=== PATIENT | female | born 1925 | race Caucasian/White ===

== ENCOUNTER 2017-02-24 13:13 | Inpatient (IN) | payer MEDICARE ==
[2017-02-24 14:01] LABS: #Monocytes 0.8 thou/uL (0.11-0.59); #Neutrophils 12.4 thou/uL (1.40-6.50); %Basophils 0.2 % (0.0-1.0); %Eosinophils 0.2 % (0.0-10.0); %Monocytes 5.6 % (0.0-10.0); Hematocrit 37.5 % (36.0-47.0); Mean Platelet Volume 6.7 fL (7.4-10.4); Red Blood Cell (RBC) Count 3.83 mill/uL (4.20-5.40); White Blood Cell (WBC) Count 14.2 thou/uL (4.8-10.8)
[2017-02-24 14:12] LABS: PTT 23.4 SEC (22.9-36.1); Prothrombin Time 15.8 SEC (12.0-14.7)
[2017-02-24 14:22] LABS: Lactic Acid - Sepsis 3.5 mmol/L (0.5-2.2)
[2017-02-24 14:25] LABS: ALT (SGPT) 28 U/L (8-55); AST (SGOT) 80 U/L (5-34); Alkaline Phosphatase 100 U/L (40-150); Anion Gap 20 mmol/L (10-20); BUN (Urea Nitrogen) 24 mg/dL (9.8-20.1); Bilirubin, Total 1.1 mg/dL (0.2-1.2); CK (CPK) 2856 U/L (29-168); Calc. Creatinine Clearance 0 mL/min (70-130); Calcium 9.1 mg/dL (7.8-10.44); Carbon Dioxide 19 mmol/L (23-31); Chloride 97 mmol/L (98-107); Estimated GFR-MDRD 65; Globulin 3.3 g/dL (2.4-3.5); Protein, Total 6.8 g/dL (6.0-8.3)
[2017-02-24 14:29] LABS: Troponin I 0.239 ng/mL (< 0.028)
--- NOTE | 2017-02-24 14:54 | CT ---
FACIAL BONES CT WITHOUT CONTRAST: Date: 02/24/17 HISTORY: Status post fall last night, unwitnessed. Unknown down time. Post-traumatic pain and lacerations. COMPARISON: None. TECHNIQUE: Maxillofacial CT is performed in the axial plane. Reformatted images are submitted for interpretatio n. FINDINGS: Visualized calvarium is intact. Adequate aeration of the visualized sinuses and mastoid air cells. Bilateral zygomatic arches are intact. Mandible and maxilla do not demonstrate post-traumatic change . Pterygoid plates are intact. There is preservation of the osseous margins of the orbits, as well as the paranasal sinuses. Bilateral ostiomeatal complexes are patent. Nasal septum is intact. Bilateral ocular lens implants are noted. Both globes are intact. Retrobulbar fat is preserved. Symm etric attenuation of the optic nerves and ocular rectus muscles. Limited evaluation of the oral cavity due to dental amalgam artifact. Midline fatty raphe of the ton lele is preserved. Upper cervical spine demonstrates preservation of vertebral body height. Nondisplaced right nasal bone fracture is noted. IMPRESSION: 1. Midline frontal scalp post-traumatic change. 2. Right nasal bone fracture. POS: [facility]
--- NOTE | 2017-02-24 14:55 | CT ---
CT HEAD WITHOUT IV CONTRAST: Date: 02-24-17 History: Patient fell. Unknown downtime. Found this morning with laceration to forehead and bruising to bilateral eyes. Comparison: None available. FINDINGS: There is decreased attenuation of the periventricular and white matter likely reflective of moderate to severe chronic small vessel ischemic changes. There is no evidence of acute cortical infarction, hemorrhage, mass effect or midline shift. There is mild cerebral volume loss. Ventricular system is normal in size, shape, and position for the degree of sulcal atrophy. There is soft tissue defect in the anterior and frontal region with associated subcutaneous soft tis suad swelling likely related to laceration. Underlying calvarial structures are intact, there is no e vidence of a calvarial fracture. No radiopaque foreign body is identified. IMPRESSION: 1. No acute intracranial abnormality is demonstrated. 2. Chronic small vessel ischemic changes with volume loss. 3. Scalp laceration anterior frontal region. POS: [facility]
--- NOTE | 2017-02-24 15:01 | CT ---
CERVICAL SPINE CT WITHOUT CONTRAST: Date: 02/24/17 HISTORY: Patient fell, down uncertain time. Laceration. Post-traumatic pain. COMPARISON: None. TECHNIQUE: A cervical spine CT is performed without contrast. Reformatted images are submitted for interpretati on. FINDINGS: Lateral masses of C1 and C2 articulate appropriately. There is appropriate articulation of the facet s. Odontoid process is intact. No prevertebral soft tissue swelling. No epidural hematoma. No high grade central canal stenosis. Mo derate bilateral foraminal narrowing at C5-C6 is noted. Evaluation of the contents of the central sp inal canal and neural foramina are limited by technique. Upper mediastinum and lung apices are unremarkable. There is approximately 1-2 mm of anterolisthesis of C4 upon C5, likely on the basis of degenerative change. Current study is not tailored to assess for ligamentous injury. Cervical spine vertebral bod y height is maintained. No fracture. IMPRESSION: No fracture. POS: [facility]
--- NOTE | 2017-02-24 15:42 | CT ---
EXAM: CHEST CT WITH CONTRAST ABDOMEN CT WITH CONTRAST PELVIC CT WITH CONTRAST LIMITED CT OF THE THORACIC AND LUMBAR SPINE 02/24/17 HISTORY: Patient was found down. Patient fell. Unwitnessed down time. COMPARISON: None. TECHNIQUE: Chest, abdomen and pelvic CT are performed with IV contrast. Coronal reformatted images are submitte d for interpretation. Limited CT of the thoracic and lumbar spine is performed with reformatted imag es. FINDINGS: CHEST CT: No mediastinal mass, lymphadenopathy or hematoma. Heart size is within normal limits. No significant pericardial fluid. The thoracic aorta and abdominal aorta do demonstrate mild tortuosity. No aneury sm or dissection. Atherosclerosis noted. Trachea and central bronchi are patent. Chronic change in the lung parenchyma are suspected. There i s an ill-defined 6 mm nodule in the middle lobe. Atelectatic changes are identified in the lung base s. ABDOMEN AND PELVIC CT: Intra and extrahepatic portal vein is patent. Liver, spleen, and adrenal glands have appropriate enhancement. Gallbladder is unremarkable. Symmetric enhancement of the kidneys. Bilaterally, no obstructive uropathy. There is a hypodensity in the uncinate process of the pancreas, incompletely evaluated measuring sumanth roximately 1.6 cm. Evaluation is limited by motion. No gastrohepatic, retrocrural or periportal lymphadenopathy. No mesenteric mass, lymphadenopathy, free air or free fluid. Limited evaluation of the alimentary canal due to lack of oral contrast. No evidence of bowel obstru ction. Ileocecal junction is normal. Fecal material in a nondistended, nondilated colon. Mucosal thi ckening of the sigmoid colon likely due to remote bouts of diverticulitis. Active inflammation is no t appreciated. Nonemergent colonoscopy if clinically warranted. PELVIC CT: There is evidence of pessary. No pelvic mass, lymphadenopathy, free air or free fluid. Urinary bladd er is unremarkable. Uterus and adnexal structures are unremarkable. Irregularity involving the proximal right humerus. Correlate for an acute versus chronic fracture. T he bony thorax is unremarkable. The left superior pubic ramus demonstrates fracture. Fracture along the anterior aspect of the left inferior pubic ramus is also noted. Additional fractures are not sumanth reciated. CT OF THE THORACIC AND LUMBAR SPINE: Scoliotic curvature of the thoracic and lumbar spine. No acute fracture. Degenerative changes are no yunior. IMPRESSION: 1. Probable remote trauma to the proximal right humerus. Confirmation with clinical correlation is recommended. Dedicated shoulder right shoulder radiograph views required. 2. Nonspecific 6 mm nodule in the middle lobe. 3. Left inferior and superior pubic rami fractures. 4. Hypodensity in the pancreas incompletely evaluated. POS: [facility]
[2017-02-24] MEDS ORDERED: Lidocaine 1% w/Epinephrine 1:200K 30 ML VIAL ONE (15:43)
[2017-02-24] MEDS ORDERED: ISOVUE-370 76%-LOCM 1 ML ONE (15:53)
[2017-02-24] MEDS ORDERED: Piperacillin/Tazobactam 4.5 GM VIAL ONE (15:58)
[2017-02-24] MEDS ORDERED: Dextrose 5% in Water 1,000 ML IV PRN ×2 (16:13→16:14)
[2017-02-24] MEDS ORDERED: Dextrose 50% Abboject 50 ML SYRINGE SLOW IVP PRN ×2 (16:13→16:14)
[2017-02-24] MEDS ORDERED: Ondansetron HCl/PF 4 MG/2 ML Vial IVP PRN (16:14)
[2017-02-24] MEDS ORDERED: Ondansetron ODT 4 MG TAB PO PRN (16:14)
[2017-02-24] MEDS ORDERED: Vancomycin HCl 1 GM in Premix Bag 1 BAG IVPB SCH (16:15)
[2017-02-24] MEDS ORDERED: Piperacillin/Tazobactam 4.5 GM, Admixture Fee 1 EACH in Sodium Chloride 0.9% 100 ML IVPB SCH (16:15)
[2017-02-24] MEDS ORDERED: Rib Fracture Protocol PO SCH (16:15)
[2017-02-24] MEDS ORDERED: Adacel (T-DAP) 0.5 ML VIAL ONE (16:39)
[2017-02-24] MEDS ORDERED: Sodium Chloride 0.9% 1,000 ML IV SCH ×2 (17:00→17:16)
[2017-02-24] MEDS ORDERED: Cyclobenzaprine 10 MG TAB PO PRN (17:00)
[2017-02-24 17:18] LABS: Bilirubin Negative (Negative); Blood, Urine Large (Negative); Glucose, Urine (Dipstick) Negative (Negative); Ketone, Urine 15 mg/dL (Negative); Nitrite Negative (Negative); Protein, Urine (Dipstick) Trace mg/dL (Neg-Trace); Urobilinogen 0.2 mg/dL (0.2-1.0)
[2017-02-24 17:20] LABS: Bacteria/HPF None Seen HPF (None Seen); Hyaline Casts/LPF 0-3 HYALINE CAST LPF (0-3 Hyaline); Squamous Epithelial 0-3 HPF (0-3); WBC/HPF 0-3 HPF (0-3)
[2017-02-24 18:00] LABS: Troponin I 0.242 ng/mL (< 0.028)
[2017-02-24 18:04] LABS: Critical Call CKMBM RESULT DECREASING
--- NOTE | 2017-02-24 18:49 | HP ---
DATE OF ADMISSION: 02/24/2017 ATTENDING PHYSICIAN: Jamey Childers D.O. TRAUMA ACTIVATION: Not applicable. HISTORY OF PRESENT ILLNESS: Ms. Lori Piper is an 89-year-old female who presented to [facility], status post unwitnessed fall. Patient is amnestic of events surrounding the fall. Per family a t bedside, she was found on the floor this a.m. She was evaluated in the emergency room and found t o have a nondisplaced right nasal bone fracture, superior and inferior pubic rami fracture as well a s multiple lab abnormalities. Orthopedic Surgery was notified and Trauma Services was asked to admi t. Upon my evaluation, the patient has a chief complaint of left upper extremity discomfort with mo vement, but then later states she has no complaints of her pain at this time. She has difficulty re membering the events surrounding her fall. She is alert and oriented x2 self and time. PAST MEDICAL HISTORY AND ALLERGIES: The patient denies. CHRONIC MEDICAL ILLNESS: Atrial fibrillation, hypertension, chronic back pain. HOME MEDICATIONS: Metoprolol, dose unknown; ibuprofen; ASA 81 mg; lorazepam, dose unknown p.r.n. PAST SURGICAL HISTORY: Significant for hysterectomy. SOCIAL HISTORY: Patient lives at home alone, ambulates independently. Denies alcohol, illicit drug use, or tobacco use. FAMILY HISTORY: Noncontributory in this case. REVIEW OF SYSTEMS: Negative except as indicated in the HPI. Specifically, the patient denies fever s, chills, nausea, vomiting, abdominal pain, urinary retention, dysuria, frequency or urgency, chest pain, shortness of breath, cough or increasing sputum production. PHYSICAL EXAMINATION: VITAL SIGNS: Blood pressure 168/65, pulse 105, respirations 20, O2 sat 92% on 3 liters. GENERAL: Well-developed elderly appearing female resting in bed, in no acute distress. HEAD: There is a small 1.5 cm laceration on the mid forehead with active venous bleeding. There is an additional small 1-1.5 cm laceration inferior to that with dried blood. There is bilateral yaw orbital left greater than right ecchymosis. There is dried blood in her hair. EYES: Pupils were PERRL. Extraocular movements are intact. NECK: Supple. Trachea is midline. Range of motion within normal limits for patient. CHEST/PULMONARY: Pectus excavatum noted. Normal work of breathing, symmetric rise. No tenderness to palpation. LUNGS: Clear to auscultation bilaterally. CARDIOVASCULAR: Regular rate and rhythm, no obvious murmurs, rubs, or gallops. GASTROINTESTINAL: Abdomen is soft with mild suprapubic tenderness to palpation only. Bowel sounds are positive. MUSCULOSKELETAL: Moves all extremities x4. There is 2-3+ pitting edema to the level of the mid yomi n in bilateral lower extremities. NEUROLOGIC: Patient is alert and oriented to self and time. No focal deficit noted. LABORATORY FINDINGS: Sodium 133, potassium 3.2, chloride 97, carbon dioxide 19, BUN 24, creatinine 0.83, glucose 117. Lactic acid 3.5, AST 80, total bilirubin 1.1, ALT 28, alkaline phosphatase 100. CK 2856, CK-MB 44.3, troponin 0.239. INR 1.2. WBC 14.2, hemoglobin 12.4, hematocrit 37.5, platele t count 227, 87.2% neutrophils with no reported bands. RADIOLOGIC FINDINGS: CT of the face significant for nondisplaced right nasal bone fracture and midl ine frontal scalp hematoma. CT of the chest, abdomen, and pelvis with evidence of right proximal hu merus trauma, nonspecific 6 mm nodule in the right middle lobe, left inferior and superior pubic melanie i fractures and a 1.6 cm hypodensity in the pancreas. CT of the C-spine was negative for acute frac ture or dislocation, but there was evidence of chronic degenerative changes and 1-2 mm anterolisthes is of C4 upon C5. CT of the brain was negative for acute intracranial abnormality or hemorrhage wit h evidence of chronic small vessel ischemic changes and volume loss as well as a scalp laceration. EKG with nonspecific T-wave abnormality, sinus rhythm with PAC. ASSESSMENT: 1. Status post unwitnessed fall, unclear circumstances. 2. Left superior and inferior pubic rami fracture. 3. Nondisplaced right nasal bone fracture. 4. Scalp laceration. 5. Elevated troponins. 6. Leukocytosis with elevated lactic acid, no obvious evidence of infection at this time, urinalysi s is pending. 7. Elevated CK. 8. Elevated troponin with nonspecific EKG changes. 9. Electrolyte abnormality. PLAN: 1. Admit to Trauma Services. 2. IMICU. 3. Trend troponins. 4. Echocardiogram. 5. A.m. labs. 6. Gentle IV fluid hydration. 7. Pain management. 8. Orthopedic Surgery has been notified of pubic rami fracture. 9. Patient will need PT and OT. 10. Follow up urinalysis. 11. Recheck lactic acid. 12. The patient was seen and evaluated with Dr. Childers. 13. Plans for admission discussed with patient and family, who are in agreement at the time of this dictation. Additionally, Dr. Childers discussed possible need for placement of patient in assisted [facility] or a long-term care facility given patient's recent increase in forgetfulness and memory issues . We will discuss with case management.
[2017-02-24] MEDS: Ibuprofen 600 MG TAB PO SCH (19:56)
[2017-02-24] MEDS: Acetaminophen 500 MG TAB PO SCH (19:56)
[2017-02-24] MEDS: traMADol HCl 50 MG TAB PO SCH (19:56)
[2017-02-24] MEDS ORDERED: FLU VACC TS2017-18 (>65YR) 0.5 ML SYRINGE IM ONE (21:00)
[2017-02-24] MEDS: Gabapentin 100 MG CAP PO SCH (21:19)
[2017-02-24 21:29] LABS: Troponin I 0.206 ng/mL (< 0.028)
[2017-02-24 21:34] LABS: Critical Call CKMBM RESULT DECREASING
[2017-02-24 22:47] VITALS: BMI 24.3
[2017-02-25] MEDS: Ibuprofen 600 MG TAB PO SCH ×4 (00:04→17:42)
[2017-02-25] MEDS: Acetaminophen 500 MG TAB PO SCH ×4 (00:04→17:42)
[2017-02-25] MEDS: traMADol HCl 50 MG TAB PO SCH ×4 (00:05→21:33)
[2017-02-25 05:02] LABS: Anion Gap 13 mmol/L (10-20); BUN (Urea Nitrogen) 23 mg/dL (9.8-20.1); CK (CPK) 1159 U/L (29-168); Calc. Creatinine Clearance 52 mL/min (70-130); Calcium 7.8 mg/dL (7.8-10.44); Carbon Dioxide 21 mmol/L (23-31); Chloride 105 mmol/L (98-107); Estimated GFR-MDRD 74; Magnesium 1.7 mg/dL (1.6-2.6)
[2017-02-25 05:05] LABS: #Monocytes 0.6 thou/uL (0.11-0.59); #Neutrophils 6.7 thou/uL (1.40-6.50); %Eosinophils 0.1 % (0.0-10.0); %Lymphocytes 11.7 % (21.0-51.0); %Monocytes 7.6 % (0.0-10.0); Hematocrit 26.6 % (36.0-47.0); Red Blood Cell (RBC) Count 2.68 mill/uL (4.20-5.40); White Blood Cell (WBC) Count 8.3 thou/uL (4.8-10.8)
[2017-02-25] MEDS ORDERED: Potassium Phosphate 30 MMOL in Sodium Chloride 0.9% 500 ML IVPB SCH (05:30)
[2017-02-25] MEDS ORDERED: Magnesium Sulfate 3 GM in Sodium Chloride 0.9% 100 ML IVPB SCH (05:30)
[2017-02-25] MEDS: Heparin 5,000 UNITS/ML VIAL SC SCH ×3 (08:11→21:41)
[2017-02-25] MEDS: Gabapentin 100 MG CAP PO SCH ×3 (08:12→21:36)
--- NOTE | 2017-02-25 09:26 | CON ---
DATE OF CONSULTATION: 02/25/2017 CHIEF COMPLAINT: Hip pain. HISTORY OF PRESENT ILLNESS: Ms. Piper is an 89-year-old female who fell yesterday. She was amnes tic to the events of the accident. She was found down. She was taken to the emergency department. She has been found to have left-sided ramus fractures. She also was thought to have sepsis likely causing her fall. She has been admitted to the Critical Care Unit. She has been stable and her shannan n is controlled. PAST MEDICAL HISTORY: Atrial fibrillation, hypertension, and chronic back pain. ALLERGIES: None. PAST SURGICAL HISTORY: Hysterectomy. SOCIAL HISTORY: The patient denies tobacco, alcohol, or drug use. She lives independently. FAMILY MEDICAL HISTORY: Noncontributory. REVIEW OF SYSTEMS: Positive for mild left-sided hip pain. PHYSICAL EXAMINATION: VITAL SIGNS: Temperature is 99.2, pulse is 100, respiratory rate 20, oxygen saturation 99%, and blo od pressure is 120/74. GENERAL: She is alert and oriented, no apparent distress. RESPIRATORY: Breathing comfortably. ABDOMEN: Soft, nontender, and nondistended. MUSCULOSKELETAL: The patient's left hip has some pain with motion. Normal appearance and alignment of the legs. She is able to flex and extend the foot and ankle and has a palpable dorsalis pedis p ulse. IMAGES: CT scan of the pelvis is reviewed which demonstrates a left inferior and superior pubic melanie us fracture, these are minimally displaced. IMPRESSION: Elderly female status post fall with pubic rami fractures, stable. PLAN: At this point, the patient can weightbear as tolerated. She can mobilize with physical thera py. She will have ongoing workup for her medical conditions as well as possible infection. She tasha l continue close monitoring. From an orthopedic standpoint, we will sign off for now. She should f ollow up in Orthopedic Clinic in 1 month for repeat x-ray of the AP pelvis.
[2017-02-25 10:02] LABS: Bilirubin Small (Negative); Blood, Urine Moderate (Negative); Glucose, Urine (Dipstick) Negative (Negative); Ketone, Urine 15 mg/dL (Negative); Nitrite Negative (Negative); Protein, Urine (Dipstick) Trace mg/dL (Neg-Trace); Urobilinogen 0.2 mg/dL (0.2-1.0)
[2017-02-25 10:03] LABS: Bacteria/HPF None Seen HPF (None Seen); Squamous Epithelial 0-3 HPF (0-3); WBC/HPF 21-50 HPF (0-3)
[2017-02-25 10:16] LABS: Renal Epithelial None Seen HPF (0-3); Transitional Epithelial NONE SEEN HPF (0-3); Yeast-All Forms None Seen HPF (None Seen)
[2017-02-25 10:17] LABS: Hyaline Casts/LPF 0-3 HYALINE CAST LPF (0-3 Hyaline)
--- NOTE | 2017-02-25 14:58 | PRG ---
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 Overnight, patient had some sinus tachycardia w ith PACs. Currently, she denies any dyspnea or syncope. She denies any chest pain. She is on jad l rest overnight. She denies any nausea or vomiting. OBJECTIVE: VITAL SIGNS: Today includes blood pressure 120/74, pulse 100, respiratory rate 20, temperature 99.2 degrees Fahrenheit, and oxygen saturation 99% on 2 liters by nasal cannula oxygen. HEENT: Examination reveals stable scalp laceration. No cephalohematoma noted. Pupils are equal, r ound, and reactive to light and accommodation. HEART: Reveals regular rate with mild sinus tachycardia. No murmurs or gallops auscultated. LUNGS: Clear to auscultation bilaterally. Breathing is regular and unlabored. ABDOMEN: Soft, nontender and nondistended. Bowel sounds in all four quadrants appear normoactive. NEUROLOGIC: Examination reveals no focal deficits present. EXTREMITIES: Reveals 2+ bilateral pitting ankle and pretibial edema present. LABORATORY DATA: Pertinent laboratory finding today includes CBC with 8,300 white blood cells, hemo globin 9.3, hematocrit is 26.6, and platelet count is 179,000. Metabolic profile; sodium 136, potassium is 2.6, chloride is 105, bicarbonate 21, BUN 23, creatinine is 0.74, glucose is 105, phosphorus is 3.0, magnesium is 1.7. BNP today is elevated at 589.7. IMPRESSION: 1. Post injury day #1, status post ground level fall. 2. Traumatic brain injury with cerebral concussion, neurologically stable. 3. Left inferior and superior pubic rami fractures, stable. 4. Acute hypokalemia. 5. Acute hypomagnesemia. PLAN: 1. Correct abnormal electrolytes. 2. Initiate physical and occupational therapy to increase activity as tolerated. 3. Advance patient's diet. 4. We will continue to hold patient's prehospitalization on metoprolol as current blood pressure is prohibitive of the use of beta hiram. 5. Above findings and plan have been discussed with the patient and daughter at bedside. They both indicated understanding of information given. I answered all of their questions.
[2017-02-25 15:18] LABS: Anion Gap 13 mmol/L (10-20); BUN (Urea Nitrogen) 27 mg/dL (9.8-20.1); Calc. Creatinine Clearance 44 mL/min (70-130); Calcium 8.1 mg/dL (7.8-10.44); Carbon Dioxide 22 mmol/L (23-31); Chloride 103 mmol/L (98-107); Estimated GFR-MDRD 61; Magnesium 2.7 mg/dL (1.6-2.6)
[2017-02-25] MEDS ORDERED: Potassium Chloride 40 MEQ in Sodium Chloride 0.9% 500 ML IVPB SCH (16:00)
[2017-02-26] MEDS: traMADol HCl 50 MG TAB PO SCH ×4 (00:51→17:44)
[2017-02-26] MEDS: Ibuprofen 600 MG TAB PO SCH ×4 (00:51→17:43)
[2017-02-26] MEDS: Acetaminophen 500 MG TAB PO SCH ×4 (00:51→17:43)
[2017-02-26 04:58] LABS: Anion Gap 9 mmol/L (10-20); BUN (Urea Nitrogen) 30 mg/dL (9.8-20.1); Calc. Creatinine Clearance 49 mL/min (70-130); Calcium 7.7 mg/dL (7.8-10.44); Carbon Dioxide 24 mmol/L (23-31); Chloride 104 mmol/L (98-107); Estimated GFR-MDRD 69; Magnesium 2.3 mg/dL (1.6-2.6); Phosphorus 3.1 mg/dL (2.3-4.7)
[2017-02-26] MEDS ORDERED: Sodium Chloride 0.9% 250 ML 250 ML IVPB SCH (06:30)
[2017-02-26] MEDS ORDERED: Potassium Phosphate 30 MMOL, Admixture Fee 1 EACH in Sodium Chloride 0.9% 500 ML IVPB SCH (07:30)
[2017-02-26] MEDS: Gabapentin 100 MG CAP PO SCH ×3 (09:23→21:44)
[2017-02-26] MEDS: Heparin 5,000 UNITS/ML VIAL SC SCH ×3 (09:23→21:43)
--- NOTE | 2017-02-26 10:09 | PRG-2 ---
DATE OF SERVICE: 02/26/2017 ATTENDING PHYSICIAN: Dr. Jamey Childers. HISTORY OF PRESENT ILLNESS: This is a pleasant 89-year-old woman with a past medical history of senile dementia of Alzheimer's type, who is status post ground-level fall sustaining multiple trauma including scalp laceration, right nasal bone fracture, left superior and inferior pubic rami fractures. SUBJECTIVE: The patient is doing well this morning. She is awake and alert. GCS 15. No significant overnight events. She denies any nausea, vomiting, chest pain, or shortness of breath. OBJECTIVE: VITAL SIGNS: Today includes blood pressure 154/78, pulse 88, respiratory rate 14, oxygen saturation 96% on 2 liters, and temperature of 98.4 degrees Fahrenheit. HEENT: Atraumatic and normocephalic head. Examination reveals stable scalp laceration. Pupils equally round and reactive to light and accommodation. CARDIOVASCULAR: Reveals regular rate and rhythm. No murmurs or gallops auscultated. LUNGS: Clear to auscultation bilaterally. Breathing is regular and unlabored. ABDOMEN: Soft, nontender, nondistended. Bowel sounds in all 4 quadrants appear normoactive. NEUROLOGIC: Examination reveals no focal deficits. EXTREMITIES: Reveals 1+ bilateral pitting ankle and pretibial edema. MUSCULOSKELETAL: The patient has apparent pectus excavatum. Inspection of upper and lower extremities normal. LABORATORY DATA: BMP this morning reveals sodium 133, potassium 3.6, chloride 104, bicarbonate 24, BUN 30, creatinine 0.79, glucose 117, calcium 7.7. Phosphorus 3.1 and magnesium 2.3. No images to report on this morning. ASSESSMENT: 1. Post-injury day #2, status post ground level fall. 2. Traumatic brain injury with cerebral concussion, neurologically stable. 3. Left inferior and superior pubic rami fractures, stable. 4. Acute hypokalemia, resolved. 5. Acute hypomagnesemia, resolved. PLAN: The patient was transferred to surgical floor yesterday. She has been doing well. Her pain is well controlled on Tylenol, Flexeril, gabapentin, and tramadol. The patient worked with PT yesterday. The patient was cooperative with PT. PT noted that she was deconditioned with decreased functional mobility and gait. Patient's son was at bedside this morning. Discussion was had regarding inpatient rehab versus a short-term nursing facility. The patient's son was agreeable to patient being screened for inpatient rehabilitation. Case management is assisting with this evaluation. An echocardiogram was performed, which showed preserved ejection fraction with some mild tricuspid and mitral regurgitation. We will continue to follow patient while in the hospital. The patient would likely benefit from inpatient rehabilitation to optimize her recovery. The above findings and plan have been discussed with the patient and son at bedside. They both indicate understanding of information given. All questions were answered. Patient was seen and evaluated by Christy Sheth PA-C. Plan was discussed with Dr. Jamey Childers. JEWEL
--- NOTE | 2017-02-26 13:18 | PQF ---
DATE: 02-26-17 ATTN: DR. AMNA RODRIGUEZ Please exercise your independent, professional judgment in responding to the clarification form. Clinical indicators are provided on the bottom of this form for your review Please check appropriate box(s): [ x] UTI please specify if due to or related to (as applicable): [ ] Indwelling UTI Site: [ ] Kidney [ ] Ureter [ ] Bladder [ ] Urethra [ x ] Unable to determine Specify Organism (if known): [ ] Unknown organism [ ] Contaminated urine specimen without UTI [ ] Other diagnosis [ ] Unable to determine In addition, please specify: Present on Admission (POA): [ x ] Yes [ ] No [ ] Unable to determine For continuity of documentation, please document condition throughout progress notes and discharge summary. Thank You. CLINICAL INDICATORS - SIGNS / SYMPTOMS / LABS ER DOCUMENTATION: SIMPLE CORTES INSERTED, USING A 16 FR CATHETER, IN ONE ATTEMPT, OUTPUT AMOUNT (ML) 400, URINE YELLOW IN COLOR, AND CLOUDY. URINE: 02-25-17: URINE KETONES: 15 H URINE BLOOD: MODERATE H UR LEUKOCYTE ESTERASE: SMALL H URINE WBC: 21-50 H RISK FACTORS: ER DOCUMENTATION: SIMPLE CORTES INSERTED, USING A 16 FR CATHETER, IN ONE ATTEMPT, OUTPUT AMOUNT (ML) 400, URINE YELLOW IN COLOR, AND CLOUDY. ER DOCUMENTATION: FALL AT HOME, FOUND BY FAMILY AT HOME TREATMENT: ( 02-26-17 MAR ) IVF (ER ) THOMAS KHALIL ( NURSES ASSESSMENT 02-25-17) CORTES CATH OUT, IN DIAPER NOW Please provide a response below if a more specific term indicating a diagnosis and/or acuity level for this condition can be identified. Please exercise your independent, professional judgment in responding to the clarification form. Clinical indicators are provided at the top of this form for your review. Thank you. (This form is maintained as a part of the permanent medical record) 2015 [employer]. All Rights Reserved [email or web address] Office: [phone] [facility]ENTERJarocho
--- NOTE | 2017-02-26 13:30 | PQF ---
DATE: 02-26-17 ATTN: DR. AMNA RODRIGUEZ Please exercise your independent, professional judgment in responding to the clarification form. Clinical indicators are provided on the bottom of this form for your review Please check appropriate box(s) to clarify if the following diagnosis has been ruled in our ruled out: SEPSIS (CDI/Coding list diagnosis here ) [ ] Ruled in diagnosis [ ] Continue to treat [ ] Resolved [ x ] Ruled out diagnosis [ ] Other diagnosis [ ] Unable to determine In addition, please specify: Present on Admission (POA): [ x] Yes [ ] No [ ] Unable to determine For continuity of documentation, please document condition throughout progress notes and discharge summary. Thank You. CLINICAL INDICATORS - SIGNS / SYMPTOMS / LABS ER DOCUMENTATION: SEPSIS UNKNOWN ORIGIN, FACIAL LACERATION, FALL, INDETERMINANT TROPONIN, PUBIC RAMI FX, RHABDOMYOLYSIS CONSULT NOTE DR. BURNETT 02-25-17: SHE ALSO WAS THOUGHT TO HAVE SEPSIS LIKELY CAUSING HER FALL. LABS: WBC: 02-24-17: 14.2 LACTIC ACID: 02-24-17: 3.5 RISK FACTORS: EXTREMES OF AGE H&P: S/P FALL TREATMENTS: (ER) ZOSYN, VANCOMYCIN, IVF (This form is maintained as a part of the permanent medical record) 2014 [employer] All Rights Reserved [email or web address] Office: [phone] [facility]
[2017-02-26] MEDS: hydrALAZINE 20 MG/ML VIAL SLOW IVP PRN (18:40)
[2017-02-26] MEDS: Senokot S 8.6-50 MG TAB PO SCH (21:43)
[2017-02-27] MEDS: Ibuprofen 600 MG TAB PO SCH ×2 (00:22→06:44)
[2017-02-27] MEDS: Acetaminophen 500 MG TAB PO SCH ×2 (00:22→06:44)
[2017-02-27] MEDS: hydrALAZINE 20 MG/ML VIAL SLOW IVP PRN ×2 (00:41→21:33)
[2017-02-27] MEDS: traMADol HCl 50 MG TAB PO SCH ×5 (01:18→23:55)
[2017-02-27 04:19] LABS: #Eosinphils 0.1 thou/uL (0.0-0.7); #Lymphocytes 1.3 thou/uL (1.20-3.40); #Monocytes 0.5 thou/uL (0.11-0.59); #Neutrophils 7.3 thou/uL (1.40-6.50); %Basophils 0.1 % (0.0-1.0); %Eosinophils 0.9 % (0.0-10.0); %Lymphocytes 13.9 % (21.0-51.0); %Monocytes 5.3 % (0.0-10.0); Hematocrit 27.7 % (36.0-47.0); Mean Platelet Volume 6.4 fL (7.4-10.4); Red Blood Cell (RBC) Count 2.83 mill/uL (4.20-5.40); White Blood Cell (WBC) Count 9.1 thou/uL (4.8-10.8)
[2017-02-27 04:55] LABS: Anion Gap 13 mmol/L (10-20); BUN (Urea Nitrogen) 15 mg/dL (9.8-20.1); Calc. Creatinine Clearance 68 mL/min (70-130); Calcium 7.7 mg/dL (7.8-10.44); Carbon Dioxide 22 mmol/L (23-31); Chloride 94 mmol/L (98-107); Estimated GFR-MDRD Greater than 90; Magnesium 1.8 mg/dL (1.6-2.6); Phosphorus 1.9 mg/dL (2.3-4.7)
[2017-02-27] MEDS ORDERED: Magnesium 2 GM/NS 0.9% 50 ML 2 GM in Premix Bag 1 BAG IVPB SCH (05:45)
[2017-02-27] MEDS: Potassium Phosphate 30 MMOL in Sodium Chloride 0.9% 500 ML IVPB SCH ×2 (06:43→09:50)
[2017-02-27] MEDS: Heparin 5,000 UNITS/ML VIAL SC SCH ×3 (08:58→21:34)
[2017-02-27] MEDS: Aspirin 81 mg Enteric Coated Tablet PO SCH (11:14)
[2017-02-27] MEDS: Metoprolol Tartrate 50 MG TAB PO SCH (11:15)
[2017-02-27] MEDS: Gabapentin 100 MG CAP PO SCH ×3 (11:15→21:34)
[2017-02-27] MEDS: Magnesium Oxide 400 MG TAB PO SCH ×2 (11:15→21:34)
[2017-02-27] MEDS: Senokot S 8.6-50 MG TAB PO SCH ×2 (11:16→21:34)
[2017-02-27] MEDS: Polyethylene Glycol 3350 17 GM Packet PO SCH (11:16)
--- NOTE | 2017-02-27 12:18 | PRG-2 ---
DATE OF SERVICE: 02/27/2017 ATTENDING PHYSICIAN: Jamey Childers DO SUBJECTIVE: This is a pleasant 89-year-old woman with a past medical history of senile dementia of Alzheimer's type, who is status post ground level fall sustaining multiple trauma including scalp laceration, right nasal bone fracture , left superior and inferior pubic rami fractures. The patient is doing well this morning. She is awake and alert. GCS is 15. No significant overnight events; however, she just reports not having an appetite, which is a change from yesterday. The patient's son was in the room and reported that she was coughing after eating. The nurse also reported that she noted the patient is coughing after her breakfast this morning. The patient currently denies any chest pain, shortness of breath, nausea or vomiting. OBJECTIVE: VITAL SIGNS: Blood pressure 156/73, pulse 120, respiratory rate 20, temperature 98.8 degrees Fahrenheit, oxygen saturation of 96% on 2 liters. HEENT: Atraumatic and normocephalic head. Examination reveals stable scalp laceration. CARDIOVASCULAR: Reveals regular rate and rhythm. No murmurs or gallops auscultated. LUNGS: Clear to auscultation. Breathing is regular and unlabored. ABDOMEN: Soft, nontender, and nondistended. NEUROLOGIC: No focal deficits appreciated. EXTREMITIES: No cyanosis. There is 1+ bilateral pitting ankle pretibial edema. MUSCULOSKELETAL: The patient has pectus excavatum. LABORATORY DATA: CBC reveals a white blood cell count of 9.1, hemoglobin 9.3, hematocrit 27.7, and platelet count 282. BMP reveals sodium 125, potassium 3.7 , chloride 94, bicarbonate 22, BUN 15, creatinine 0.57, glucose 114, and calcium 7.7. Phosphorus this morning was 1.9 and magnesium 1.8. IMAGING: No imaging to report on this morning. ASSESSMENT: 1. Post-injury day #3, status post ground level fall. 2. Traumatic brain injury with cerebral concussion, neurologically stable. 4. Left inferior and superior pubic rami fractures, stable. 5. Acute hypokalemia, resolved. 6. Acute hypophosphatemia. 7. Hyponatremia. PLAN: The patient's pain control is currently optimized with Tylenol, Neurontin and tramadol. Of note, the patient has decreased appetite this morning and was coughing after eating some of her breakfast, thus the Speech evaluation was placed. The patient's diet will be changed depending on recommendations by Speech Therapy. We will replace electrolytes today. Also, we will fluid restrict the patient as she is hyponatremic. Fluid restriction will be at 1500 mL per day. Of note, the patient was drinking a significant amount of free water. This will be limited; however, she is encouraged to drink other fluids including Gatorade. The patient's family and the patient have agreed to evaluation for inpatient rehabilitation. We are currently awaiting an evaluation from [facility]. Placement will be dependent upon approval. The patient was seen and evaluated by SHARONA Arce. The above plan was discussed with Dr. Childers. JEWEL
[2017-02-27] MEDS: Acetaminophen 650 MG/20.3 ML UDCUP PO SCH ×2 (13:20→17:55)
[2017-02-27] MEDS: Ibuprofen 100 MG/5 ML UDCUP PO SCH ×2 (13:23→17:55)
[2017-02-27] MEDS ORDERED: Sodium Chloride 0.9% 500 ML IVPB SCH (23:15)
[2017-02-27] MEDS: Acetaminophen 1,000 MG in Premix Bag 1 BAG IVPB SCH (23:40)
[2017-02-28] MEDS: Sodium Chloride 0.9% 1,000 ML IV SCH ×2 (02:08→11:18)
[2017-02-28] MEDS: Acetaminophen 1,000 MG in Premix Bag 1 BAG IVPB SCH (05:36)
[2017-02-28 05:37] LABS: #Eosinphils 0.1 thou/uL (0.0-0.7); #Lymphocytes 1.4 thou/uL (1.20-3.40); #Monocytes 0.7 thou/uL (0.11-0.59); #Neutrophils 7.6 thou/uL (1.40-6.50); %Basophils 0.4 % (0.0-1.0); %Eosinophils 0.7 % (0.0-10.0); %Lymphocytes 14.7 % (21.0-51.0); %Monocytes 6.9 % (0.0-10.0); Hematocrit 29.1 % (36.0-47.0); Mean Platelet Volume 6.2 fL (7.4-10.4); Red Blood Cell (RBC) Count 2.99 mill/uL (4.20-5.40); White Blood Cell (WBC) Count 9.8 thou/uL (4.8-10.8)
[2017-02-28] MEDS: traMADol HCl 50 MG TAB PO SCH (05:37)
[2017-02-28 05:50] LABS: Anion Gap 12 mmol/L (10-20); BUN (Urea Nitrogen) 8 mg/dL (9.8-20.1); Calc. Creatinine Clearance 72 mL/min (70-130); Calcium 7.5 mg/dL (7.8-10.44); Carbon Dioxide 22 mmol/L (23-31); Chloride 96 mmol/L (98-107); Estimated GFR-MDRD Greater than 90
[2017-02-28] MEDS ORDERED: Ketorolac Tromethamine 30 MG/ML VIAL IVP SCH (06:00)
[2017-02-28] MEDS ORDERED: Potassium Phosphate 30 MMOL in Sodium Chloride 0.9% 250 ML 250 ML IVPB SCH (08:30)
[2017-02-28] MEDS: Metoprolol Tartrate 50 MG TAB PO SCH (08:46)
[2017-02-28] MEDS: Heparin 5,000 UNITS/ML VIAL SC SCH (08:50)
[2017-02-28] MEDS: Aspirin 81 mg Enteric Coated Tablet PO SCH (09:01)
[2017-02-28] MEDS: Magnesium Oxide 400 MG TAB PO SCH (09:01)
[2017-02-28] MEDS: Gabapentin 100 MG CAP PO SCH (09:01)
[2017-02-28] MEDS: Senokot S 8.6-50 MG TAB PO SCH (09:01)
[2017-02-28] MEDS: Polyethylene Glycol 3350 17 GM Packet PO SCH (11:18)
[2017-02-28 12:20] VITALS: BP 147/84; TEMP 97.5
--- NOTE | 2017-02-28 15:21 | EKG ---
Test Reason : Blood Pressure : / mmHG Vent. Rate : 094 BPM Atrial Rate : 094 BPM P-R Int : 168 ms QRS Dur : 082 ms QT Int : 370 ms P-R-T Axes : 054 004 033 degrees QTc Int : 462 ms Sinus rhythm with Premature supraventricular complexes Nonspecific ST abnormality Abnormal ECG Confirmed by SONY TIJERINA M.D. ([id number]), non linear editor IDALIA BARRERA ([id number]) on 02/28/2017 3:20:56 PM Referred By: Confirmed By:SONY TIJERINA M.D.
[2017-03-01] MEDS ORDERED: Acetaminophen 650 MG/20.3 ML UDCUP PO SCH (06:00)
--- NOTE | 2017-03-02 09:49 | DIS ---
DATE OF ADMISSION: 02/24/2017 DATE OF DISCHARGE: 02/28/2017 ADMISSION DIAGNOSES: 1. Status post ground level fall. 2. Left superior and inferior pubic rami fracture. 3. Nondisplaced right nasal bone fracture. 4. Scalp laceration. 5. Elevated troponins, white blood cell count and lactic acid with no obvious evidence of infection or EKG changes. CONSULTATIONS: Orthopedics, Dr. Marte. PROCEDURES: None. SUMMARY: This is an 89-year-old female who was found at home after having fallen circumstances surr ounding. Reason for the fall was unclear. The patient was brought to the emergency department, ingrid carbone, examined and found to have the above injuries. The repeat troponins would decline and the p atient had no arrhythmias noted in an essentially unremarkable echocardiogram. The patient's orthop edic injuries would be treated nonoperatively as was the nasal bone fracture. The patient would be discharged to inpatient rehabilitation for continuation of her care. The patient at time of dischar ge was tolerating a diet and her pain was controlled. She was working with physical and occupationa l therapy and we will follow up with Orthopedics in 3-4 weeks, sooner as needed. The patient may fo llow up with the Trauma Clinic as needed also.
--- NOTE | 2017-04-17 09:55 | EKG ---
Test Reason : Blood Pressure : / mmHG Vent. Rate : 134 BPM Atrial Rate : 134 BPM P-R Int : 000 ms QRS Dur : 084 ms QT Int : 304 ms P-R-T Axes : 061 -07 007 degrees QTc Int : 453 ms Sinus tachycardia with Premature atrial complexes Possible Anterior infarct , age undetermined Abnormal ECG When compared with ECG of 24-FEB-2017 13:36, No significant change was found Confirmed by DR. Dunia CAMPOS ([id number]) on 04/17/2017 9:54:45 AM Referred By: MICHAEL Confirmed By:DR. Dunia CAMPOS
== END 2017-02-28 14:28 | DRG 89 ==
LOC: ERS 13:13 → IMCU/EMU 19:35 → SURG A 02-25 19:04
PROVIDERS: ADMIT Surgery; ATTEND Surgery
PROC: 0HQ1XZZ Repair Face Skin, External Approach (ICD-10-PCS; principal; 2017-02-24)
DX: S06.0X0A Concussion without loss of consciousness, initial encounter (principal); S32.512A Fracture of superior rim of left pubis, initial encounter for closed fracture; M62.82 Rhabdomyolysis; E83.39 Other disorders of phosphorus metabolism; E87.1 Hypo-osmolality and hyponatremia; I48.2 Chronic atrial fibrillation; N39.0 Urinary tract infection, site not specified; S02.2XXA Fracture of nasal bones, initial encounter for closed fracture; G30.1 Alzheimer's disease with late onset; F02.80 Dementia in other diseases classified elsewhere, unspecified severity, without behavioral disturbance, psychotic disturbance, mood disturbance, and anxiety; I10 Essential (primary) hypertension; S00.03XA Contusion of scalp, initial encounter; S01.81XA Laceration without foreign body of other part of head, initial encounter; W18.30XA Fall on same level, unspecified, initial encounter; Y92.019 Unspecified place in single-family (private) house as the place of occurrence of the external cause; M54.9 Dorsalgia, unspecified; G89.29 Other chronic pain; E87.6 Hypokalemia; S00.12XA Contusion of left eyelid and periocular area, initial encounter; S00.11XA Contusion of right eyelid and periocular area, initial encounter; Z23 Encounter for immunization
CPT/HCPCS: 12011; 36415; 51702; 70450; 70486; 71260; 72125; 74177; 80048; 80053; 81003; 81015; 82550; 82553; 83605; 83735; 83880; 84100; 84484; 85025; 85610; 85730; 86850; 86900; 86901; 87086; 90471; 90715; 93005; 93010; 93306; 94640; 96361; 96365; 96374; 99292; G0390; G8978-GP-CL; G8979-GP-CJ; G8987-GO-CL; G8988-GO-CJ; G8996-GN-CN; G8997-GN-CM; J0131; J0360; J1644; J1885; J2543; J3370; J3475; J3480; J7050; J7620